=== PATIENT | male | born 1965 | race Caucasian/White ===

== ENCOUNTER 2023-03-02 13:51 | Emergency (ER) | payer OTHER ==
[~2023-03-02] VITALS: Ht 177.8 cm; Wt 79.4 kg
[2023-03-02] MEDS ORDERED: LORA0.5T48 PO (14:39)
[2023-03-02] MEDS ORDERED: ALBU0.63 NEB (14:39)
[2023-03-02] MEDS ORDERED: [UNRECOGNIZED DRUG - OTHER] (14:39)
[2023-03-02] MEDS ORDERED: FLUT1DIS27 INH (14:39)
[2023-03-02] MEDS ORDERED: predniSONE 20 MG TABLET ONE (15:41)
[2023-03-02] MEDS ORDERED: FLUT1DIS29 INH (15:42)
[2023-03-02] MEDS ORDERED: ALBU8.5H8 INH (15:42)
[2023-03-02] MEDS ORDERED: ROPI5TAB4 PO (15:42)
[2023-03-02] MEDS ORDERED: DIPH50CA4 PO (15:42)
[2023-03-02] MEDS ORDERED: PRED50TA PO (15:42)
[2023-03-02] MEDS ORDERED: ALBUTEROL SULFATE 2.5 MG/3 ML NEBU NEB ONE (15:45)
[2023-03-02] MEDS ORDERED: IPRATROPIUM BROMIDE 0.5 MG/2.5 ML NEBU NEB ONE (15:45)
[2023-03-02] MEDS ORDERED: predniSONE 10 MG TABLET PO ONE (15:45)
[2023-03-02] MEDS ORDERED: ALBUTEROL SULFATE 2.5 MG/3 ML NEBU ONE (15:49)
[2023-03-02] MEDS ORDERED: IPRATROPIUM BROMIDE 0.5 MG/2.5 ML NEBU ONE (15:49)
[2023-03-02 15:50] VITALS: O2SAT 98
[2023-03-02 16:50] VITALS: O2SAT 99
[2023-03-02 17:32] VITALS: BP 122/84; TEMP 98; O2SAT 99
== END 2023-03-02 17:32 | disposition home or self-care (01) ==
LOC: ER 13:51
DX: J45.901 Unspecified asthma with (acute) exacerbation (principal); G25.81 Restless legs syndrome; Z79.899 Other long term (current) drug therapy
CPT/HCPCS: 99285; 94644; J7512; A4663; J3590